=== PATIENT | female | born 1980 | race Caucasian/White ===

== ENCOUNTER 2019-03-26 17:53 | Emergency (ER) | payer MEDICAID ==
[2019-03-26] MEDS ORDERED: Ondansetron 4 MG Tab.DIS PO ONE (18:06)
--- NOTE | 2019-03-26 18:11 | EDM.PDOC ---
ED HPI GENERAL MEDICAL PROBLEM - General Chief Complaint: Head Injury Stated Complaint: headache after injury Time Seen by Provider: 03/26/19 17:53 Source of Information: Reports: Patient History Limitations: Reports: No Limitations - History of Present Illness INITIAL COMMENTS - FREE TEXT/NARRATIVE: Patient is a 38-year-old female who presents to the emergency department via private vehicle and has a complaint of posterior scalp head injury. The incident occurred at 1545 today. Patient states that she was taking something out of her car trunk and the trunk lid slammed down on the back of her head. Patient initially felt nauseous, however, she did not vomit. She decided to go back into her home. She developed a headache that worsened. She became concerned and decided to present to the emergency department. Nausea has persisted. She denies blurry vision, dizziness, neck pain or being on blood thinners. Onset: Today, Sudden Onset Date: 03/26/19 Onset Time: 15:45 Duration: Hour(s): Location: Reports: Head Quality: Reports: Ache, Pressure Severity: Mild Improves with: Reports: None Worsens with: Reports: None Context: Reports: Trauma Associated Symptoms: Reports: Headaches, Nausea/Vomiting. 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 Constitutional: Reports: No Symptoms HEENT: Reports: No Symptoms Respiratory: Reports: No Symptoms Cardiovascular: Reports: No Symptoms Endocrine: Reports: No Symptoms GI/Abdominal: Reports: No Symptoms : Reports: No Symptoms Musculoskeletal: Reports: No Symptoms. Denies: Neck Pain Skin: Reports: No Symptoms Neurological: Reports: Headache. Denies: Confusion, Dizziness, Numbness, Paresthesia, Syncope Psychiatric: Reports: No Symptoms Hematologic/Lymphatic: Reports: No Symptoms Immunologic: Reports: No Symptoms ED EXAM, HEAD INJURY - Physical Exam Exam: See Below Exam Limited By: No Limitations General Appearance: Alert, WD/WN, No Apparent Distress Head: Atraumatic, Normocephalic, Other (No occipital region bogginess, depression, or laceration noted.) Eyes: Bilateral Eye: Normal Inspection Ears: Normal External Exam, Normal Canal, Normal TMs Nose: Normal Inspection, No Blood Throat/Mouth: Normal Inspection, Normal Oropharynx, No Airway Compromise Neck: Non-Tender, Full Range of Motion, Normal Alignment Respiratory: No Respiratory Distress Back Exam: Normal Inspection Extremities: Normal Inspection Neurologic: Alert, Normal Mood/Affect, Oriented x 3 Skin: Normal Color, Warm/Dry - Chang Coma Score Best Eye Response ([place]): (4) Open Spontaneously Best Verbal Response ([place]): (5) Oriented Best Motor Response (Chang): (6) Obeys Commands [place] Total: 15 Course - Orders/Labs/Meds Orders: Active Orders 24 hr Category Date Time Status Head wo Cont [CT] Stat Exams 03/26/19 17:59 Ordered - Radiology Interpretation Free Text/Narrative:: CT head shows no acute intracranial process - Re-Assessments/Exams Free Text/Narrative Re-Assessment/Exam: 03/26/19 19:03 Patient afebrile, vital signs stable, nausea and headache resolved. Patient will follow-up with PCP Departure - Departure Time of Disposition: 19:04 Disposition: Home, Self-Care 01 Condition: Good Clinical Impression: Concussion with no loss of consciousness Head injury without fracture of skull Qualifiers: Encounter type: initial encounter Qualified Code(s): S09.90XA - Unspecified injury of head, initial encounter - Discharge Information Instructions: Head Injury, Adult, [id number], Concussion, Adult, [id number] , Facial or Scalp Contusion, [id number] Forms: ED Department Discharge Additional Instructions: Follow-up with PCP in next 2-3 days. Return to emergency department sooner if symptoms continue or worsen. - My Orders Last 24 Hours: My Active Orders 03/26/19 17:59 Head wo Cont [CT] Stat - Assessment/Plan Last 24 Hours: My Active Orders 03/26/19 17:59 Head wo Cont [CT] Stat Assessment:: Scalp contusion Plan: Follow-up with PCP
--- NOTE | 2019-03-26 19:02 | CT ---
[id number] CT/CT Head WO IV EXAM: CT Head WO IV CLINICAL DATA: TRAUMA COMPARISON: NO PREVIOUS SIMILAR EXAM IS AVAILABLE FOR COMPARISON. FINDINGS: There is no mass or mass effect. There is no hemorrhage or hydrocephalus. There are no extra-axial fluid collections. There are no sites of abnormal attenuation. IMPRESSION: NO PLAIN CT EVIDENCE OF ACUTE INTRACRANIAL PROCESS. Ruben Zavaleta MD 03/26/19 7745 Thank you for allowing us to participate in the care of your patient.
[2019-03-26 19:20] VITALS: BP 144/65; PULSE 90
== END 2019-03-26 19:15 | disposition home or self-care (01) ==
LOC: KA.ED 17:53
DX: S06.0X0A Concussion without loss of consciousness, initial encounter (principal); S00.03XA Contusion of scalp, initial encounter; J45.909 Unspecified asthma, uncomplicated; Z79.899 Other long term (current) drug therapy; W22.8XXA Striking against or struck by other objects, initial encounter
CPT/HCPCS: 70450; 99283; A9270

== ENCOUNTER 2019-07-14 19:55 | Emergency (ER) | payer MEDICAID, OTHER ==
[2019-07-14 20:36] VITALS: BP 115/62; PULSE 76
--- NOTE | 2019-07-14 20:44 | CT ---
[id number] CT/CT Head WO IV EXAM: CT Head WO IV CLINICAL DATA: Fall. COMPARISON STUDY: March 26, 2019. FINDINGS: No intracranial hemorrhage, extra-axial fluid collection, mass, or acute ischemia. No hydrocephalus. Paranasal sinuses and mastoid air cells are clear. IMPRESSION: Normal examination of the brain. Chavez Cameron MD 07/14/19 2043 Thank you for allowing us to participate in the care of your patient.
--- NOTE | 2019-07-14 20:45 | EDM.PDOC ---
ED HPI GENERAL MEDICAL PROBLEM - General Chief Complaint: General Stated Complaint: Headache after Fall Time Seen by Provider: 07/14/19 20:20 Source of Information: Reports: Patient History Limitations: Reports: No Limitations - History of Present Illness INITIAL COMMENTS - FREE TEXT/NARRATIVE: 39 YO WF presents to ER complaining of headache after slip and fall on ice earlier this am. Pt reports she slipped and landed on her buttocks and braced her fall with her right arm. Pt reports she was able to get up without difficulty. Pt reports she began to develop right sided posterior headache and right sided trapezius soreness/neck pain. Onset: Today Onset Date: 07/14/19 Onset Time: 07:45 Location: Reports: Head, Neck Quality: Reports: Ache Severity: Mild Improves with: Reports: Rest Worsens with: Reports: Movement Associated Symptoms: Reports: Headaches, Nausea/Vomiting. Denies: Fever/Chills Treatments MANAGER PERFORMANCE: Reports: Acetaminophen Head Pain Score (Numeric/FACES): 7 - Related Data Allergies Allergy/AdvReac Type Severity Reaction Status Date / Time No Known Drug Allergies Allergy Other Verified 07/14/19 20:09 Home Meds: Home Meds Albuterol [IJD: Albuterol HFA] 2 puff INH Q4HR PRN 05/21/16 [History] Montelukast [Singulair] 10 mg PO DAILY 03/26/19 [History] buPROPion HCl [Wellbutrin Xl] 150 mg PO DAILY 03/26/19 [History] Cyclobenzaprine [Flexeril] 10 mg PO TID PRN #10 tab 07/14/19 [Rx] traMADol [Ultram] 50 mg PO Q6H PRN #10 tab 07/14/19 [Rx] Past Medical History - Past Health History Medical/Surgical History: Denies Medical/Surgical History Respiratory History: Reports: Asthma Gastrointestinal History: Reports: Irritable Bowel Syndrome MEDICAL ADMINISTRATIVE History: Reports: Spontaneous , Other (See Below) Other MEDICAL ADMINISTRATIVE History: 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 Neurological History: Reports: Migraines Psychiatric History: Reports: Anxiety, Depression - Infectious Disease History Infectious Disease History: Reports: Chicken Pox - Past Surgical History Female Surgical History: Reports: Section Neurological Surgical History: Reports: None Social & Family History - Family History Family Medical History: Noncontributory - Caffeine Use Caffeine Use: Reports: Coffee ED ROS GENERAL - Review of Systems Review Of Systems: See Below Constitutional: Reports: No Symptoms HEENT: Reports: No Symptoms Respiratory: Reports: No Symptoms Cardiovascular: Reports: No Symptoms Endocrine: Reports: No Symptoms GI/Abdominal: Reports: Nausea : Reports: No Symptoms Musculoskeletal: Reports: Neck Pain Skin: Reports: No Symptoms Neurological: Reports: Headache Psychiatric: Reports: No Symptoms Hematologic/Lymphatic: Reports: No Symptoms Immunologic: Reports: No Symptoms ED EXAM, GENERAL - Physical Exam Exam: See Below Exam Limited By: No Limitations General Appearance: Alert, WD/WN, No Apparent Distress Eye Exam: Bilateral Eye: EOMI, PERRL Ears: Normal External Exam, Normal Canal, Hearing Grossly Normal, Normal TMs Throat/Mouth: Normal Inspection, Normal Lips, Normal Teeth, Normal Gums, Normal Oropharynx, Normal Voice, No Airway Compromise Head: Atraumatic, Normocephalic Neck: Normal Inspection, Supple, Full Range of Motion, Tender Lateral, Other ( right sided muscle spasms to trapezius and paraspinales). No: Tender Midline Respiratory/Chest: No Respiratory Distress, Lungs Clear, Normal Breath Sounds, No Accessory Muscle Use, Chest Non-Tender Cardiovascular: Normal Peripheral Pulses, Regular Rate, Rhythm, No Edema, No Gallop, No JVD, No Murmur, No Rub GI/Abdominal: Normal Bowel Sounds, Soft, Non-Tender, No Organomegaly, No Distention, No Abnormal Bruit, No Mass Back Exam: Normal Inspection, Full Range of Motion, NT Extremities: Normal Inspection, Normal Range of Motion, Non-Tender, Normal Capillary Refill, No Pedal Edema Neurological: Alert, Oriented, CN II-XII Intact, Normal Cognition, Normal Gait, Normal Reflexes, No Motor/Sensory Deficits Psychiatric: Normal Affect, Normal Mood Skin Exam: Warm, Dry, Intact, Normal Color, No Rash Lymphatic: No Adenopathy Course - Vital Signs Last Recorded V/S: Last Vital Signs Temp 36.4 C 07/14/19 20:35 Pulse 76 07/14/19 20:35 Resp 18 07/14/19 20:35 BP 115/62 07/14/19 20:35 Pulse Ox 99 07/14/19 20:35 - Radiology Interpretation Free Text/Narrative:: CT head- NAD Departure - Departure Time of Disposition: 21:04 Disposition: Home, Self-Care 01 Clinical Impression: Cervical sprain Qualifiers: Encounter type: initial encounter Qualified Code(s): S13.9XXA - Sprain of joints and ligaments of unspecified parts of neck, initial encounter Headache Qualifiers: Headache chronicity pattern: acute headache Intractability: not intractable - Discharge Information Prescriptions: Cyclobenzaprine [Flexeril] 10 mg PO TID PRN #10 tab PRN Reason: Muscle Spasm traMADol [Ultram] 50 mg PO Q6H PRN #10 tab PRN Reason: Pain Instructions: Cervical Sprain, [id number], General Headache Without Cause Referrals: Gerry Garcia DIRECTOR OF HOTEL OPERATIONS [Primary Care Provider] - Forms: ED Department Discharge Additional Instructions: 1. discharge home 2. Flexeril 10mg every 8 hours as needed 3. Ultram 50mg every 6 hours for head/neck pain 4. continue ibuprofen 600mg every 6 hours as needed 5. follow up with PCP for further evaluation and treatment 6. return to ER for worsening symptoms Sepsis Event Note - Focused Exam Vital Signs: Vital Signs Temp Pulse Resp BP Pulse Ox 07/14/19 20:35 36.4 C 76 18 115/62 99 Date Exam was Performed: 07/14/19 Time Exam was Performed: 20:56 - Assessment/Plan Assessment:: 1. Fall 2. cervical sprain 3. right sided posterior headache Plan: 1. discharge home 2. Flexeril 10mg every 8 hours as needed 3. Ultram 50mg every 6 hours for head/neck pain 4. continue ibuprofen 600mg every 6 hours as needed 5. follow up with PCP for further evaluation and treatment 6. return to ER for worsening symptoms
[2019-07-14] MEDS ORDERED: Cyclobenzaprine 10 MG Tab PO ONE (21:08)
== END 2019-07-14 21:30 | disposition home or self-care (01) ==
LOC: KA.ED 19:55
DX: S13.9XXA Sprain of joints and ligaments of unspecified parts of neck, initial encounter (principal); R51 Headache; W01.0XXA Fall on same level from slipping, tripping and stumbling without subsequent striking against object, initial encounter
CPT/HCPCS: 70450; 99284; A9270